=== PATIENT | female | born 1985 | race African-American/Black ===

== ENCOUNTER 2017-03-11 09:00 | Observation (INO) | payer OTHER ==
[~2017-03-11] VITALS: Ht 152.4 cm; Wt 105.5 kg
[2017-03-11] VITALS (7 sets, daily range): BP systolic 112–148; BP diastolic 75–94; TEMP 97.5–98.1; Ht 152.4 cm; Wt 105.5 kg
[2017-03-11 10:27] LABS: PLATELET COUNT 320 K/uL (152-353)
[2017-03-11 10:36] LABS: POTASSIUM 3.8 mmol/L (3.6-5.2)
[2017-03-11] MEDS ORDERED: HYDROCHLOROT12.5 M1 PO (18:54)
[2017-03-11] MEDS ORDERED: PROM25TA52 PO (18:54)
[2017-03-11] MEDS ORDERED: PENICILLIN VK250 MG OR (18:55)
[2017-03-12] VITALS: BP 137/90; TEMP 97.7
[2017-03-12 05:34] LABS: POTASSIUM 3.6 mmol/L (3.6-5.2)
[2017-03-12 05:58] LABS: PLATELET COUNT 289 K/uL (152-353)
[2017-03-12 06:00] VITALS: BP 121/97; TEMP 98.4
[2017-03-12 08:17] VITALS: BP 110/87; TEMP 97.9
[2017-03-12 12:00] VITALS: BP 116/74; TEMP 97.8
[2017-03-12 16:00] VITALS: BP 125/88; TEMP 98.2
[2017-03-12 20:00] VITALS: BP 134/89; TEMP 97.4
[2017-03-13] VITALS: BP 110/85; TEMP 97.8
[2017-03-13 04:00] VITALS: BP 127/81; TEMP 98
[2017-03-13 05:10] LABS: PLATELET COUNT 285 K/uL (152-353)
[2017-03-13 05:37] LABS: POTASSIUM 3.2 mmol/L (3.6-5.2)
[2017-03-13 08:20] VITALS: BP 153/91; TEMP 98
[2017-03-13 12:00] VITALS: BP 106/73; TEMP 97.1
[2017-03-13 16:00] VITALS: BP 118/76; TEMP 98.3
[2017-03-13 20:00] VITALS: BP 115/71; TEMP 98.4
[2017-03-14] VITALS: BP 98/70; TEMP 98.5
--- NOTE | 2017-03-14 06:32 | NUR ---
03/14/17 0632 TO EXRAErik VIA [email or web address]
--- NOTE | 2017-03-14 15:50 | NUR ---
IV D/C'D. D/C INSTRUCTIONS GIVEN TO DAUGHTER AND DAUGHTER TRANSLATED TO PATIENT. PRESCRIPTIONS GIVEN. PT/FAMILY HAVE NO FUTHER QUESTIONS. PT WHEELED OUT TO VEHICLE. NO PROBLEMS NOTED.
== END 2017-03-14 16:02 | disposition home or self-care (01) ==
LOC: ED 09:00 → MED/SURG 15:00
PROVIDERS: ADMIT Family Medicine
DX: K52.89 Other specified noninfective gastroenteritis and colitis (principal); I10 Essential (primary) hypertension; E11.9 Type 2 diabetes mellitus without complications; E66.8 Other obesity; R10.31 Right lower quadrant pain; A04.8 Other specified bacterial intestinal infections
CPT/HCPCS: 36415; 80048; 80053; 82550; 82948; 83036; 85027; 85379; 86318; 87081; 87804; 87880; 96361; 96365; 96366; 96367; 96375; 99220; 99284; G0378; J1940; J1956; J2270; J2405; J3490; Q9963